=== PATIENT | male | born 1955 | race Caucasian/White ===

== ENCOUNTER 2017-10-12 12:13 | Emergency (ER) | payer MEDICARE, OTHER ==
[~2017-10-12] VITALS: Ht 172.7 cm; Wt 117.9 kg
[~2017-10-12 12:13] MED LIST: BACTRIM DS TAB1 EACH PO; CIPROFLOXACIN500 M1 PO; DOXYCYCLINE 10100 MG PO; FLEXERIL PO; HYDROCHLOROTHIA25 M1; HYDROCODONE-AP1 EAC6 PO; HYDROCODONE-APA1 TA1 PO; INDOMETHACIN 2525 MG PO; KENALOG60 GM TP; LISINOPRIL20 MG PO; LORTAB 5 MG/5001 TA1 PO; MEDROLDOSEPACK PO; NAPROSYN500 MG PO; NOHOMEMEDICATIONS; NORCO 5-325 TA1 EAC1 PO; NORCO 5-325 TA1 EACH PO; PERCOCET 5-3251 EACH PO; PRAVACHOL20 MG PO; PRAVASTATIN SOD20 MG; PREDNISONE 10 M10 MG PO; PREDNISONE 20 M20 M1 PO; PREDNISONE50 MG PO; PROAIR HFA8.5 GM INH; ULTRAM 50MG TAB50 MG PO; ZANTAC 150MG T150 M1; ZOCOR 20 MG TAB20 M1 PO; ZOFRAN 4 MG ORAL4 MG PO; ZPAK PO
[2017-10-12] MEDS ORDERED: NORCO 10-325 T1 EACH PO (12:38)
[2017-10-12] MEDS ORDERED: ASPIR 8181 MG PO (12:40)
[2017-10-12] MEDS ORDERED: NORCO 5-325 TA1 EACH PO (13:26)
[2017-10-12 14:10] VITALS: BP 146/81
== END 2017-10-12 14:10 | disposition home or self-care (01) ==
LOC: M.ERS 12:13
DX: M25.561 Pain in right knee (principal); I10 Essential (primary) hypertension; K21.9 Gastro-esophageal reflux disease without esophagitis; E78.00 Pure hypercholesterolemia, unspecified; Z88.5 Allergy status to narcotic agent

== ENCOUNTER 2017-11-14 00:29 | Emergency (ER) | payer MEDICARE, OTHER ==
[~2017-11-14] VITALS: Ht 172.7 cm; Wt 113.4 kg
[~2017-11-14 00:29] MED LIST changes: +ASPIR 8181 MG PO; +NORCO 10-325 T1 EACH PO
[2017-11-14 00:35] VITALS: BP 161/104
[2017-11-14] MEDS ORDERED: NAPROSYN500 MG PO (00:43)
[2017-11-14] MEDS ORDERED: HYDROCHLOROTHIA25 M2 PO (00:43)
[2017-11-14] MEDS ORDERED: LIPITOR 20 MG T20 M1 PO (00:44)
[2017-11-14] MEDS ORDERED: INDOMETHACIN 5050 M1 PO (00:44)
[2017-11-14] MEDS ORDERED: NORCO 5-325 TA1 EACH PO (00:49)
[2017-11-14] MEDS ORDERED: IBUPROFEN 800800 M1 PO (00:49)
== END 2017-11-14 00:58 | disposition home or self-care (01) ==
LOC: M.ERS 00:29
DX: M72.2 Plantar fascial fibromatosis (principal); I10 Essential (primary) hypertension; E78.00 Pure hypercholesterolemia, unspecified; K21.9 Gastro-esophageal reflux disease without esophagitis; F10.99 Alcohol use, unspecified with unspecified alcohol-induced disorder; Z88.5 Allergy status to narcotic agent; X58.XXXA Exposure to other specified factors, initial encounter; Y93.89 Activity, other specified; Y92.89 Other specified places as the place of occurrence of the external cause; Y99.8 Other external cause status

== ENCOUNTER 2017-11-30 18:45 | Emergency (ER) | payer MEDICARE, OTHER ==
[~2017-11-30] VITALS: Ht 175.3 cm; Wt 117.9 kg
[~2017-11-30 18:45] MED LIST changes: +HYDROCHLOROTHIA25 M2 PO; +IBUPROFEN 800800 M1 PO; +INDOMETHACIN 5050 M1 PO; +LIPITOR 20 MG T20 M1 PO
[2017-11-30] MEDS ORDERED: HYDROCHLOROTHIA25 M2 PO (19:14)
[2017-11-30] MEDS ORDERED: PROTONIX40 M2 PO (19:16)
[2017-11-30] MEDS ORDERED: LISINOPRIL20 MG PO (19:16)
[2017-11-30 19:38] LABS: ABSOLUTE BASOPHILS 0.1 thou/uL (0.0-0.2); ABSOLUTE EOSINOPHILS 0.2 thou/uL (0.0-0.7); ABSOLUTE LYMPHOCYTES 1.6 thou/uL (0.8-5.3); ABSOLUTE MONOCYTES 0.7 thou/uL (0.0-1.2); ABSOLUTE NEUTROPHILS 5.3 thou/uL (1.6-8.1); BASOPHILS 0.7 %; HEMATOCRIT 38.8 % (42.0-52.0); HEMOGLOBIN 12.8 gm/dL (14.0-18.0); LYMPHOCYTES 20.2 %; MCH 28.3 pg (26.0-34.0); MCHC 33.1 g/dL (28.0-37.0); MCV 85.6 fL (80.0-100.0); MONOCYTES 8.8 %; NUCLEATED RBCS 0 /100WBC; PLATELET COUNT* 238 thou/uL (150-400); POLYS 68.3 %; RBC 4.53 mil/uL (4.50-6.00); WBC 7.8 thou/uL (4.0-11.0)
[2017-11-30 19:46] LABS: ANION GAP 7 mmol/L (7-16); BUN 16 mg/dL (7-18); CALCIUM 8.8 mg/dL (8.5-10.1); CHLORIDE 103 mmol/L (98-107); CO2 31 mmol/L (21-32); CREATININE 1.1 mg/dL (0.6-1.3); GLUCOSE 114 mg/dL (70-99); POTASSIUM 3.8 mmol/L (3.5-5.1); SODIUM 141 mmol/L (136-145)
[2017-11-30 19:51] LABS: APTT 26.5 Seconds (25.0-31.3); PROTIME 9.4 Seconds (9.20-11.50)
[2017-11-30 20:02] LABS: ALBUMIN 3.4 g/dL (3.4-5.0); ALKALINE PHOSPHATASE 106 U/L (46-116); LIPASE 129 U/L (73-393); NT-PRO BRAIN NAT PEPTIDE 519 pg/mL (<300); SGOT 21 U/L (15-37); SGPT 24 U/L (30-65); TOTAL BILIRUBIN 0.3 mg/dL (<0.1-1.0); TOTAL PROTEIN 6.9 g/dL (6.4-8.2); TROPONIN-I LEVEL <0.06 ng/mL (<0.06)
[2017-11-30 22:20] VITALS: BP 133/71
--- NOTE | 2017-12-01 10:44 | EKG ---
[place] [address] ELECTROCARDIOGRAM REPORT Name: TORSTEN PIZARRO [id number] Admission: 11/30/17 Attend Phys: Discharge: 11/30/17 Date of : 55 Report #: [id number] THIS REPORT FOR: //name// [facility] ED Test Date: 2017-11-30 Test Time: 18:55:04 Pat Name: TORSTEN PIZARRO Department: Room: Gender: M Personnel Clerk: : 1955 Requested By: Elizabeth Gallegos Order Number: [id number] MD: Hao English Measurements Intervals [place] Rate: 71 P: 40 MN: 158 QRS: -23 QRSD: 110 T: 34 QT: 390 QTc: 424 Interpretive Statements Sinus rhythm Borderline left axis deviation Baseline wander in lead(s) V1,V3 Compared to ECG 07/21/2010 21:44:12 No significant changes Electronically Signed On 12-01-2017 10:44:29 [employer]STRUCTION [employer]PER[employer] by Hao English [email or web address] <ELECTRONICALLY SIGNED> By: Hao English MD, [facility] 12/01/17 [id number] Hao English MD, [facility] /EPI
== END 2017-11-30 21:58 | disposition home or self-care (01) ==
LOC: M.ERS 18:45
PROVIDERS: Personal Emergency Response Attendant
DX: R07.89 Other chest pain (principal); I10 Essential (primary) hypertension; E78.00 Pure hypercholesterolemia, unspecified; K21.9 Gastro-esophageal reflux disease without esophagitis; Z88.5 Allergy status to narcotic agent